=== PATIENT | female | born 1960 | race Caucasian/White ===

== ENCOUNTER 2016-07-28 10:00 | Emergency (ER) | payer MEDICAID ==
--- NOTE | 2016-07-28 10:41 | EDM.PDOC ---
<Jerri Maldonado - Last Filed: 07/28/16 11:59> ED HISTORY OF PRESENT ILLNESS - General Chief Complaint: Cardiovascular Problem Stated Complaint: [id number] HEART RATE SOB Time Seen by Provider: 07/28/16 10:40 Source of Information: Reports: Patient History Limitations: Reports: No limitations - History of Present Illness INITIAL COMMENTS - FREE TEXT/NARRATIVE: Patient presents to the ER with several vague complaints. She states she has a history of COPD and infllammatory heart disease. She states on when she took her brother to dialysis she became weak and her vision "went black". She used to O2 Sat monitor she wears around his neck and states her heart rate and sats were "quite low". She states she did not have time to come to the ER at that time. Today her complaints are vague. She states at times she feels as though her heart is going to beat out of her chest, and sob at times. She states she has had fevers on and off, but cannot say when and what the temps were. She states she does wake up sweaty at night at times. She denies any recent illnesses. She admits to smoking marijuana. Symptom Onset Date: 07/26/16 Symptom Onset Time: 08:00 Timing/Duration: Reports: Waxing/waning Severity: mild Location, General: Reports: chest Quality: Reports: Throbbing Improves with: Reports: Rest Worsens with: Reports: None Associated Symptoms (General): Reports: no other symptoms - Related Data Allergies/ADRs: Allergies Allergy/AdvReac Type Severity Reaction Status Date / Time codeine Allergy Rash Verified 03/20/16 05:27 Penicillins Allergy Cannot Verified 03/20/16 05:27 Remember Home Meds: Home Meds Albuterol [IJD: Albuterol HFA] 2 puff INH Q6HR PRN 09/30/15 [History] Fluticasone/Salmeterol [Advair Diskus 100-50] 1 puff INH BID 09/30/15 [History] Multivit-Min/Iron Fum/Folic AC [Rmyfq-Kvxretk-Dgqeabrr Tablet] 1 tab PO DAILY [History] Past Medical History Cardiovascular History: Reports: Other (see below) Other Cardiovascular History: inflammatory heart disease Respiratory History: Reports: Asthma, COPD Other Respiratory History: emphysema Genitourinary History: Reports: None Musculoskeletal History: Reports: Osteoporosis - Past Surgical History Female Surgical History: Reports: Hysterectomy Social & Family History - Family History Cardiac: Reports: CAD, PA Oncologic: Reports: Colon - Tobacco Use Smoking Status *Q: Current Every Day Smoker Years of Tobacco use: 45 Packs/Tins Daily: 0.4 Used Tobacco, but Quit: No Second Hand Smoke Exposure: Yes - Recreational Drug Use Recreational Drug Use: No ED ROS GENERAL - Review of Systems Review Of Systems: ROS reveals no pertinent complaints other than HPI. ED EXAM, GENERAL - Physical Exam Exam: See Below Exam Limited By: No limitations General Appearance: alert, WD/WN, no apparent distress Eye Exam: bilateral eye: normal inspection Ears: normal external exam, normal canal, hearing grossly normal, normal TMs Ear Exam: bilateral ear: auricle normal, canal normal, TM normal Nose: normal inspection, normal mucosa, no blood Throat/Mouth: Normal inspection, Normal lips, Normal teeth, Normal gums, Normal oropharynx, Normal voice, No airway compromise Head: atraumatic, normocephalic Neck: normal inspection, supple, non-tender, full range of motion Respiratory/Chest: no respiratory distress, no accessory muscle use, chest non- tender, decreased breath sounds, crackles Cardiovascular: normal peripheral pulses, regular rate, rhythm, no edema, no gallop, no JVD, no murmur, no rub Peripheral Pulses: 2+: radial (L), radial (R) GI/Abdominal: normal bowel sounds, soft, non tender, no organomegaly, no distention, no abnormal bruit, no mass (Female) Exam: Deferred Rectal (Female) Exam: Deferred Back Exam: normal inspection, full range of motion, NT Extremities: normal inspection, normal range of motion, non-tender, normal capillary refill, no pedal edema Neurological: alert, oriented, CN II-XII intact, normal cognition, normal gait, normal reflexes, no motor/sensory deficits Psychiatric: normal affect, normal mood Skin Exam: Warm, Dry, Intact, Normal color, No rash Lymphatic: no adenopathy EKG INTERPRETATION EKG Date: 07/28/16 Time: 11:36 Rhythm: NSR [place]: normal P-wave: present QRS: normal ST-T: normal QT: normal Course - Vital Signs Last Recorded V/S: Last Vital Signs Temp 37.3 C 07/28/16 10:24 Pulse 73 07/28/16 11:23 Resp 16 07/28/16 11:23 BP 102/63 07/28/16 11:23 Pulse Ox 95 07/28/16 11:23 - Orders/Labs/Meds Orders: Active Orders 24 hr Category Date Time Status EKG 12 Lead [EKG Documentation Completion] [RC] STAT Care 07/28/16 10:41 Active Labs: Laboratory Tests 07/28/16 07/28/16 07/28/16 Range/Units 10:50 10:50 10:50 WBC 11.3 H (5.0-10.0) 10^3/uL RBC 4.49 (4.2-5.4) 10^6/uL Hgb 14.2 (12.0-16.0) g/dL Hct 43.4 (37.0-47.0) % MCV 96.7 (80-100) fL MCH 31.6 (27.0-34.0) pg MCHC 32.7 L (33.0-35.0) g/dL Plt Count 310 (150-450) 10^3/uL Neut % (Auto) 56.0 (42.2-75.2) % Lymph % (Auto) 33.2 (20.5-50.1) % [place] % (Auto) 7.4 (2-8) % Eos % (Auto) 2.8 (1.0-3.0) % Baso % (Auto) 0.6 (0.0-1.0) % D-Dimer, Quantitative 115 (0-400) ng/mL Sodium 137 (135-145) mmol/L Potassium 4.1 (3.6-5.0) mmol/L Chloride 102 (101-111) mmol/L Carbon Dioxide 27.0 (21.0-31.0) mmol/L Anion Gap 12.1 BUN 15 (7-18) mg/dL Creatinine 0.8 (0.6-1.3) mg/dL Est Cr Clr Drug Dosing 45.52 mL/min Estimated GFR (MDRD) > 60 BUN/Creatinine Ratio 18.75 Glucose 97 (74-105) mg/dL Calcium 9.4 (8.4-10.2) mg/dl Total Bilirubin 0.6 (0.2-1.0) mg/dL AST 22 (10-42) IU/L ALT 17 (10-60) IU/L Alkaline Phosphatase 71 (42-121) IU/L Creatine Kinase (26-174) IU/L Creatine Kinase Index (0-2.4) % CK-MB (CK-2) (0.4-4.7) ng/mL Troponin I < 0.02 (0.00-0.02) ng/ml B-Natriuretic Peptide 20 (0-100) pg/ml Total Protein 7.3 (6.7-8.2) g/dl Albumin 4.0 (3.2-5.5) g/dl Globulin 3.3 Albumin/Globulin Ratio 1.21 Amylase 139 H (28-100) U/L Lipase 53 H (22-51) U/L Urine Color (YELLOW) Urine Appearance (CLEAR) Urine pH (5.0-9.0) Ur Specific [place] (1.005-1.030) Urine Protein (NEGATIVE) Urine Glucose (UA) (NEGATIVE) Urine Ketones (NEGATIVE) Urine Occult Blood (NEGATIVE) Urine Nitrite (NEGATIVE) Urine Bilirubin (NEGATIVE) Urine Urobilinogen (0.2-1.0) mg/dL Ur Leukocyte Esterase (NEGATIVE) Urine RBC /HPF Urine WBC (0-5/HPF) /HPF Ur Epithelial Cells /HPF Urine Bacteria (0-FEW/HPF) /HPF Urine Opiates Screen (NEGATIVE) Ur Oxycodone Screen (NEGATIVE) Urine Methadone Screen (NEGATIVE) Ur Barbiturates Screen (NEGATIVE) U Tricyclic Antidepress (NEGATIVE) Ur Phencyclidine Scrn (NEGATIVE) Ur Amphetamine Screen (NEGATIVE) U Methamphetamines Scrn (NEGATIVE) Urine MDMA Screen (NEGATIVE) U Benzodiazepines Scrn (NEGATIVE) Urine Cocaine Screen (NEGATIVE) U Marijuana (THC) Screen (NEGATIVE) Ethyl Alcohol < 5 mg/dL 07/28/16 07/28/16 07/28/16 Range/Units 10:50 11:33 11:33 WBC (5.0-10.0) 10^3/uL RBC (4.2-5.4) 10^6/uL Hgb (12.0-16.0) g/dL Hct (37.0-47.0) % MCV (80-100) fL MCH (27.0-34.0) pg MCHC (33.0-35.0) g/dL Plt Count (150-450) 10^3/uL Neut % (Auto) (42.2-75.2) % Lymph % (Auto) (20.5-50.1) % [place] % (Auto) (2-8) % Eos % (Auto) (1.0-3.0) % Baso % (Auto) (0.0-1.0) % D-Dimer, Quantitative (0-400) ng/mL Sodium (135-145) mmol/L Potassium (3.6-5.0) mmol/L Chloride (101-111) mmol/L Carbon Dioxide (21.0-31.0) mmol/L Anion Gap BUN (7-18) mg/dL Creatinine (0.6-1.3) mg/dL Est Cr Clr Drug Dosing mL/min Estimated GFR (MDRD) BUN/Creatinine Ratio Glucose (74-105) mg/dL Calcium (8.4-10.2) mg/dl Total Bilirubin (0.2-1.0) mg/dL AST (10-42) IU/L ALT (10-60) IU/L Alkaline Phosphatase (42-121) IU/L Creatine Kinase 88 (26-174) IU/L Creatine Kinase Index 4.2 H (0-2.4) % CK-MB (CK-2) 3.70 (0.4-4.7) ng/mL Troponin I (0.00-0.02) ng/ml B-Natriuretic Peptide (0-100) pg/ml Total Protein (6.7-8.2) g/dl Albumin (3.2-5.5) g/dl Globulin Albumin/Globulin Ratio Amylase (28-100) U/L Lipase (22-51) U/L Urine Color Yellow (YELLOW) Urine Appearance Clear (CLEAR) Urine pH 5.0 (5.0-9.0) Ur Specific [place] 1.025 (1.005-1.030) Urine Protein Negative (NEGATIVE) Urine Glucose (UA) Negative (NEGATIVE) Urine Ketones Negative (NEGATIVE) Urine Occult Blood Negative (NEGATIVE) Urine Nitrite Negative (NEGATIVE) Urine Bilirubin Negative (NEGATIVE) Urine Urobilinogen 0.2 (0.2-1.0) mg/dL Ur Leukocyte Esterase Negative (NEGATIVE) Urine RBC Not seen /HPF Urine WBC Not seen (0-5/HPF) /HPF Ur Epithelial Cells Rare /HPF Urine Bacteria Rare (0-FEW/HPF) /HPF Urine Opiates Screen Negative (NEGATIVE) Ur Oxycodone Screen Negative (NEGATIVE) Urine Methadone Screen Negative (NEGATIVE) Ur Barbiturates Screen Negative (NEGATIVE) U Tricyclic Antidepress Negative (NEGATIVE) Ur Phencyclidine Scrn Negative (NEGATIVE) Ur Amphetamine Screen Negative (NEGATIVE) U Methamphetamines Scrn Negative (NEGATIVE) Urine MDMA Screen Negative (NEGATIVE) U Benzodiazepines Scrn Negative (NEGATIVE) Urine Cocaine Screen Negative (NEGATIVE) U Marijuana (THC) Screen Positive H (NEGATIVE) Ethyl Alcohol mg/dL - Radiology Interpretation Free Text/Narrative:: CXR: Peribronchial cuffing, No pneumonia or atelectasis. See Rad report. Departure - Departure Time of Disposition: 11:45 Disposition: Home, Self-Care 01 Reason for Transfer *Q: Primary PCI Indicated Condition: good Clinical Impression: Tobacco dependence COPD (chronic obstructive pulmonary disease) Qualifiers: COPD type: unspecified COPD Qualified Code(s): J44.9 - Chronic obstructive pulmonary disease, unspecified Instructions: Smoking Cessation, Tips for Success, [id number], Chronic Obstructive Pulmonary Disease, [id number] Forms: ED Department Discharge Additional Instructions: Smoking cessation advised. Follow up with primary care provider when possible. - My Orders Last 24 Hours: My Active Orders 07/28/16 10:41 EKG 12 Lead [EKG Documentation Completion] [RC] STAT - Assessment/Plan Last 24 Hours: My Active Orders 07/28/16 10:41 EKG 12 Lead [EKG Documentation Completion] [RC] STAT <Nicola Cunha - Last Filed: 07/28/16 12:06> Course - Re-Assessments/Exams Free Text/Narrative Re-Assessment/Exam: 07/28/16 12:06 FOR THIS ENCOUNTER THE PATIENT WAS SEEN IN CONJUNCTION WITH [facility] STUDENT JERRI MALDONADO. ALL PATIENT CARE AND/OR PROCEDURE(S), DIAGNOSTIC ORDERS, MEDICATION(S) AND TREATMENT ORDERS, DISPOSITION ORDERS/PLANNING, AND DISCHARGE/FOLLOW UP INSTRUCTIONS WERE UNDER MY DIRECT SUPERVISION. rebecca
--- NOTE | 2016-07-28 11:12 | CR ---
Clinical history: 55-year-old female complaining of chest pain and shortness of breath. Interpretation: PA/lateral chest films confirm some peribronchial "cuffing" and generalized air trapping typical of reactive airway disease. Asthmatic? Smoker? Normal cardiac silhouette and bony thorax. No cephalization of vascular flow, signs of alveolar naresh a or dependent effusion. No lung mass, hilar lymphadenopathy or focal lobar pneumonia. No atelectasis/collapse. No pneumothorax.
[2016-07-28 11:17] LABS: CHLORIDE,CL 102 mmol/L (101-111); SODIUM,NA 137 mmol/L (135-145)
[2016-07-28 11:24] VITALS: BP 102/63
--- NOTE | 2016-08-05 15:05 | EKG ---
07/28/2016 - MARQUITA SOLANO - TIME OF EK hours. I reviewed the EKG and agree with the machine's reading. [facility] /[id number]
== END 2016-07-28 12:00 | disposition home or self-care (01) ==
LOC: DL.ED 10:00
DX: J44.9 Chronic obstructive pulmonary disease, unspecified (principal); J45.909 Unspecified asthma, uncomplicated; F17.210 Nicotine dependence, cigarettes, uncomplicated; Z90.710 Acquired absence of both cervix and uterus; Z88.5 Allergy status to narcotic agent; Z88.0 Allergy status to penicillin
CPT/HCPCS: 36415; 71020; 80053; 80305; 81001; 82150; 82550; 82553; 83690; 83880; 84484; 85025; 85379; 93005; 99285; G0480